=== PATIENT | female | born 1990 | race Caucasian/White ===

== ENCOUNTER 2022-06-13 05:20 | Emergency (ER) | payer MEDICAID ==
[~2022-06-13] VITALS: Ht 165.1 cm; Wt 56.0 kg
[2022-06-13 07:18] LABS: Basophils # (auto) 0.1 10 ^3/uL (0-0.2); Basophils % (auto) 0.6 % (0.0-2.0); Eosinophils # (auto) 0.2 10 ^3/uL (0-0.8); Eosinophils % (auto) 2.4 % (0.0-7.0); Hemoglobin 13.8 g/dL (12.2-16.2); Lymphocytes # (auto) 1.6 10 ^3/uL (0.4-5.4); Lymphocytes % (auto) 19.2 % (10.0-50.0); Mean Corpuscular Hemoglobin 29.1 pg (28.0-32.0); Mean Corpuscular Hgb Conc. 33.6 g/dL (32.0-36.0); Mean Corpuscular Volume 86.6 fL (80.0-100.0); Monocytes # (auto) 0.7 10 ^3/uL (0-1.3); Monocytes % (auto) 7.6 % (0.0-12.0); Neutrophils % (auto) 70.2 % (37.0-80.0); Nucleated Red Blood Cells % 0.1 %; Red Blood Cells 4.73 10^6/uL (4.0-5.20); Red Cell Distribution Width 15.3 % (11.8-14.3); White Blood Cell 8.6 10^3/uL (4.4-10.8)
[2022-06-13] MEDS ORDERED: PANT40TA2 PO (07:23)
[2022-06-13 07:40] LABS: Albumin 3.9 g/dL (3.4-5.0); Calcium 8.8 mg/dL (8.5-10.1); Potassium 4.6 mmol/L (3.5-5.1)
[2022-06-13 07:43] LABS: BUN/Creatinine Ratio 9.6; Bilirubin, Total 0.3 mg/dL (0.2-1.0); Total Protein 7.4 g/dL (6.4-8.2)
[2022-06-13 08:24] LABS: Urine Bacteria FEW /hpf (None Seen); Urine Blood Negative /uL (Negative); Urine Specific Gravity 1.017 (1.001-1.035); Urine WBC 1 /hpf (0 - 5)
[2022-06-13] MEDS: ALUM & MAG HYDROX-SIMETH LIQ(MAALOX) 30 ML PO ONE ×2 (09:09→09:15)
[2022-06-13] MEDS: LIDOCAINE VISCOUS 2% 15ML UD PO ONE ×2 (09:10→09:16)
[2022-06-13] MEDS: DONNATAL 5ml ORAL Elix (BELLADONNA ALK-PHENOBARB) PO ONE ×2 (09:10→09:15)
[2022-06-13 09:16] VITALS: BP 122/70
== END 2022-06-13 09:17 | disposition home or self-care (01) ==
LOC: ER 05:20
DX: K29.70 Gastritis, unspecified, without bleeding (principal); F17.210 Nicotine dependence, cigarettes, uncomplicated; F12.10 Cannabis abuse, uncomplicated
CPT/HCPCS: 36415; 74176; 80053; 81001; 83690; 85025

== ENCOUNTER 2022-09-03 13:04 | Emergency (ER) | payer MEDICAID ==
[~2022-09-03] VITALS: Ht 165.1 cm; Wt 58.0 kg
[~2022-09-03 13:04] MED LIST: PANT40TA2 PO
[2022-09-03] MEDS ORDERED: diphenhdrAMINE HCL 50 MG/1 ML VL IV ONE ×2 (13:15)
[2022-09-03] MEDS ORDERED: DexAMETHasone SOD PHOS 10MG/1ML VIAL INJ IV ONE (13:15)
[2022-09-03] MEDS ORDERED: PANTOPRAZOLE 40 MG/10 ML VIAL INJ IV ONE (13:15)
[2022-09-03] MEDS ORDERED: EPINEPHrine HCL 1 MG/1 ML AMP SC ONE (13:15)
[2022-09-03 13:29] VITALS: BP 108/52
[2022-09-03] MEDS ORDERED: PANT40TA2 PO (14:29)
[2022-09-03] MEDS ORDERED: PRED20TA2 PO (14:29)
[2022-09-03] MEDS ORDERED: DIPH25CA66 PO (14:29)
[2022-09-03] MEDS ORDERED: ALBUAER3 IN (14:29)
== END 2022-09-03 14:36 | disposition home or self-care (01) ==
LOC: ER 13:04
DX: T78.1XXA Other adverse food reactions, not elsewhere classified, initial encounter (principal); L50.0 Allergic urticaria; F17.200 Nicotine dependence, unspecified, uncomplicated; F12.90 Cannabis use, unspecified, uncomplicated; Z90.49 Acquired absence of other specified parts of digestive tract; X58.XXXA Exposure to other specified factors, initial encounter
CPT/HCPCS: 96372; 96374; 96375; 99284; C9113; J0171; J1100; J1200